=== PATIENT | male | born 2000 | race Caucasian/White ===

== ENCOUNTER 2023-11-12 12:15 | Outpatient (CLI) | payer OTHER ==
[2023-11-12 20:06] LABS: CHLAMYDIA TRACHOMATIS DNA NEGATIVE (NEGATIVE); NEISSERIA GONORRHOEAE DNA NEGATIVE (NEGATIVE); TRICHOMONAS VAGINALIS DNA NEGATIVE (NEGATIVE)
== END 2023-11-12 12:30 | disposition home or self-care (01) ==
LOC: LAB.N 12:15
PROVIDERS: ATTEND Family Medicine
DX: Z11.3 Encounter for screening for infections with a predominantly sexual mode of transmission (principal)
CPT/HCPCS: 87491; 87591; 87661